=== PATIENT | male | born 1945 | race Caucasian/White ===

== ENCOUNTER 2023-07-02 12:28 | Emergency (ER) | payer OTHER, MEDICARE, BC ==
[2023-07-02 13:02] VITALS: BP 151/76; PULSE 68
[2023-07-02 13:23] LABS: BASOPHILS ABSOLUTE AUTO 0.04 K/uL (0.02-0.10); BASOPHILS PERCENT AUTO 0.4 % (0.0-0.5); EOSINOPHILS ABSOLUTE AUTO 0.12 K/uL (0.04-0.40); EOSINOPHILS PERCENT AUTO 1.3 % (1.0-5.0); HEMATOCRIT 44.8 % (40.0-54.0); HEMOGLOBIN 14.9 g/dL (13.0-18.0); LYMPHOCYTES ABSOLUTE AUTO 1.32 K/uL (1.50-4.00); LYMPHOCYTES PERCENT AUTO 13.8 % (20.0-40.0); MEAN CORPUSCULAR HGB CONC 33.3 g/dL (31.0-35.0); MEAN CORPUSCULAR VOLUME 87 fL (76-96); MEAN PLATELET VOLUME 9.1 fL (6.0-10.0); MONOCYTES ABSOLUTE AUTO 0.84 K/uL (0.20-0.80); MONOCYTES PERCENT AUTO 8.8 % (3.0-10.0); NEUTROPHILS ABSOLUTE AUTO 7.28 K/uL (2.00-7.50); NEUTROPHILS PERCENT AUTO 75.7 % (45.0-70.0); PLATELET COUNT,PLT 227 K/uL (150-400); RED BLOOD CELL COUNT 5.13 M/uL (4.50-6.50); RED CELL DISTRIBUTION WIDTH 15.6 % (11.0-16.0); WHITE BLOOD CELL COUNT,WBC 9.6 K/uL (4.0-11.0)
[2023-07-02 13:41] LABS: A/G RATIO 1.1 (0.8-2.0); ALBUMIN 3.4 g/dL (3.4-5.0); ANION GAP 12.7 mmol/L (5.0-15.0); BILIRUBIN TOTAL 0.7 mg/dL (0.0-1.0); BUN/CREATININE RATIO 23.3 (6-25); CALCIUM 8.4 mg/dL (8.5-10.1); CARBON DIOXIDE,CO2 27.2 mmol/L (21.0-32.0); CREATININE 0.86 mg/dL (0.70-1.30); EST CRCL DRUG DOSING (CG) 64.56 mL/min; POTASSIUM,K 3.9 mmol/L (3.5-5.1); PROTEIN TOTAL,TP 6.5 g/dL (6.4-8.2)
[2023-07-02 13:56] LABS: APPEARANCE,URINE SLIGHTLY CLOUDY (CLEAR); BILIRUBIN,URINE NEGATIVE (NEGATIVE); COLOR,URINE YELLOW; GLUCOSE,URINE >=1000 mg/dL (NEGATIVE); KETONES,URINE NEGATIVE (NEGATIVE); LEUKOCYTE ESTERASE,URINE NEGATIVE (NEGATIVE); NITRITE,URINE NEGATIVE (NEGATIVE); OCCULT BLOOD,URINE NEGATIVE (NEGATIVE); PH,URINE 5.5 (5.0-8.0); PROTEIN,URINE NEGATIVE (NEGATIVE); UROBILINOGEN,URINE 0.2 E.U./dL (0.2-1.0)
[2023-07-02 14:03] LABS: RBC,URINE 0-5 /HPF; WBC,URINE 0-5 /HPF
== END 2023-07-02 14:26 | disposition home or self-care (01) ==
LOC: LB.ED 12:28
DX: S00.11XA Contusion of right eyelid and periocular area, initial encounter (principal); E11.49 Type 2 diabetes mellitus with other diabetic neurological complication; R29.6 Repeated falls; E78.00 Pure hypercholesterolemia, unspecified; I10 Essential (primary) hypertension; Z79.899 Other long term (current) drug therapy; Z86.19 Personal history of other infectious and parasitic diseases
CPT/HCPCS: 36415; 70450; 80053; 81001; 85025; 93005; 93010; 99284

== ENCOUNTER 2023-11-02 12:23 | Inpatient (IN) | payer MEDICARE, BC ==
[2023-11-02 12:52] LABS: BASOPHILS ABSOLUTE AUTO 0.04 K/uL (0.02-0.10); BASOPHILS PERCENT AUTO 0.2 % (0.0-0.5); HEMATOCRIT 42.7 % (40.0-54.0); HEMOGLOBIN 14.7 g/dL (13.0-18.0); LYMPHOCYTES ABSOLUTE AUTO 0.39 K/uL (1.50-4.00); LYMPHOCYTES PERCENT AUTO 2.3 % (20.0-40.0); MEAN CORPUSCULAR HEMOGLOBIN 32.2 pg (27.0-32.0); MEAN CORPUSCULAR HGB CONC 34.4 g/dL (31.0-35.0); MEAN CORPUSCULAR VOLUME 94 fL (76-96); MEAN PLATELET VOLUME 9.1 fL (6.0-10.0); MONOCYTES ABSOLUTE AUTO 0.79 K/uL (0.20-0.80); MONOCYTES PERCENT AUTO 4.6 % (3.0-10.0); NEUTROPHILS ABSOLUTE AUTO 16.03 K/uL (2.00-7.50); NEUTROPHILS PERCENT AUTO 92.9 % (45.0-70.0); PLATELET COUNT,PLT 157 K/uL (150-400); RED BLOOD CELL COUNT 4.56 M/uL (4.50-6.50); RED CELL DISTRIBUTION WIDTH 14.9 % (11.0-16.0); WHITE BLOOD CELL COUNT,WBC 17.3 K/uL (4.0-11.0)
[2023-11-02 13:12] LABS: ALBUMIN 3.1 g/dL (3.4-5.0); ANION GAP 12.4 mmol/L (5.0-15.0); BILIRUBIN TOTAL 1.5 mg/dL (0.0-1.0); BUN/CREATININE RATIO 14.9 (6-25); CALCIUM 8.4 mg/dL (8.5-10.1); CARBON DIOXIDE,CO2 29.2 mmol/L (21.0-32.0); CREATININE 1.01 mg/dL (0.70-1.30); EST CRCL DRUG DOSING (CG) 58.17 mL/min; MAGNESIUM 1.7 mg/dL (1.8-2.4); PHOSPHORUS 3.1 mg/dL (2.5-4.9); POTASSIUM,K 3.6 mmol/L (3.5-5.1); PROTEIN TOTAL,TP 6.2 g/dL (6.4-8.2)
[2023-11-02] MEDS: Acetaminophen 500 MG Tab PO ONE (13:13)
[2023-11-02 13:18] LABS: LACTIC ACID 1.5 mmol/L (0.4-2.0)
[2023-11-02 13:29] LABS: APPEARANCE,URINE SLIGHTLY CLOUDY (CLEAR); BILIRUBIN,URINE SMALL (NEGATIVE); COLOR,URINE ORANGE; GLUCOSE,URINE >=1000 mg/dL (NEGATIVE); KETONES,URINE NEGATIVE (NEGATIVE); LEUKOCYTE ESTERASE,URINE NEGATIVE (NEGATIVE); NITRITE,URINE NEGATIVE (NEGATIVE); OCCULT BLOOD,URINE NEGATIVE (NEGATIVE); PH,URINE 6.5 (5.0-8.0); PROTEIN,URINE 100 mg/dL (NEGATIVE); UROBILINOGEN,URINE >=8.0 E.U./dL (0.2-1.0)
[2023-11-02 13:51] LABS: RBC,URINE NOT SEEN /HPF; WBC,URINE 0-5 /HPF
[2023-11-02] MEDS: Piperacillin/Tazobactam 3.375 GM in Sodium Chloride 0.9% 100 ML IV SCH (14:07)
[2023-11-02 14:54] LABS: INFLUENZA A NAA NEGATIVE (NEGATIVE); INFLUENZA B NAA NEGATIVE (NEGATIVE); RESPIRATORY SYNCYTIAL VIR NAA NEGATIVE (NEGATIVE)
[2023-11-02 14:59] LABS: CORONAVIRUS COVID-19 NAA NEGATIVE (NEGATIVE)
[2023-11-02] MEDS ORDERED: Ondansetron 4 MG/2 ML SDV IV PRN (15:08)
[2023-11-02] MEDS ORDERED: Polyethylene Glycol 3350 Powder 17 GM Packet PO PRN (15:08)
[2023-11-02] MEDS ORDERED: Docusate Sodium 100 MG Cap PO PRN (15:08)
[2023-11-02] MEDS: Vancomycin 1 GM SDV ONE (16:51)
[2023-11-02] MEDS: Magnesium Sulfate/Water 2 GM in Premix Bag 1 BAG IV ONE (17:37)
[2023-11-02] MEDS: Magnesium Sulfate/Water 50 ML ONE (18:13)
[2023-11-02] MEDS: Acetaminophen 500 MG Tab PO PRN (20:11)
[2023-11-02] MEDS: Melatonin 3 MG Tab PO PRN (20:11)
[2023-11-02] MEDS ORDERED: Glucagon,Human Recombinant 1 MG Vial IM PRN (20:27)
[2023-11-02] MEDS ORDERED: 50% Dextrose in Water 50 ML Syringe IVPUSH PRN (20:27)
[2023-11-03] MEDS: Amiodarone 200 MG Tab PO SCH (07:33)
[2023-11-03] MEDS: Hydrochlorothiazide 25 MG Tab PO SCH (07:34)
[2023-11-03] MEDS: Enoxaparin 40 MG/0.4 ML Syringe SUBCUT SCH (07:36)
[2023-11-03] MEDS: Ferrous Sulfate 325 MG Tab PO SCH (07:36)
[2023-11-03] MEDS: Pantoprazole 40 MG Tab.CR PO SCH (07:36)
[2023-11-03] MEDS: Insulin Aspart 100 Units/ML 3 ML Pen SUBCUT SCH (07:46)
[2023-11-03 08:45] LABS: BASOPHILS ABSOLUTE AUTO 0.04 K/uL (0.02-0.10); BASOPHILS PERCENT AUTO 0.5 % (0.0-0.5); EOSINOPHILS ABSOLUTE AUTO 0.05 K/uL (0.04-0.40); EOSINOPHILS PERCENT AUTO 0.6 % (1.0-5.0); HEMATOCRIT 39.9 % (40.0-54.0); HEMOGLOBIN 13.5 g/dL (13.0-18.0); LYMPHOCYTES ABSOLUTE AUTO 0.76 K/uL (1.50-4.00); LYMPHOCYTES PERCENT AUTO 8.8 % (20.0-40.0); MEAN CORPUSCULAR HEMOGLOBIN 32.3 pg (27.0-32.0); MEAN CORPUSCULAR HGB CONC 33.8 g/dL (31.0-35.0); MEAN CORPUSCULAR VOLUME 96 fL (76-96); MEAN PLATELET VOLUME 9.2 fL (6.0-10.0); MONOCYTES ABSOLUTE AUTO 0.59 K/uL (0.20-0.80); MONOCYTES PERCENT AUTO 6.8 % (3.0-10.0); NEUTROPHILS ABSOLUTE AUTO 7.23 K/uL (2.00-7.50); NEUTROPHILS PERCENT AUTO 83.3 % (45.0-70.0); PLATELET COUNT,PLT 153 K/uL (150-400); RED BLOOD CELL COUNT 4.18 M/uL (4.50-6.50); RED CELL DISTRIBUTION WIDTH 15.3 % (11.0-16.0); WHITE BLOOD CELL COUNT,WBC 8.7 K/uL (4.0-11.0)
[2023-11-03 09:07] LABS: A/G RATIO 0.8 (0.8-2.0); ALBUMIN 2.6 g/dL (3.4-5.0); BILIRUBIN TOTAL 1.3 mg/dL (0.0-1.0); BUN/CREATININE RATIO 19.8 (6-25); CALCIUM 8.1 mg/dL (8.5-10.1); CARBON DIOXIDE,CO2 26.5 mmol/L (21.0-32.0); CREATININE 0.91 mg/dL (0.70-1.30); EST CRCL DRUG DOSING (CG) 64.57 mL/min; POTASSIUM,K 3.5 mmol/L (3.5-5.1); PROTEIN TOTAL,TP 5.7 g/dL (6.4-8.2)
[2023-11-03] MEDS: Vancomycin 1 GM SDV ONE ×2 (20:59)
[2023-11-04 08:16] LABS: HEMATOCRIT 41.6 % (40.0-54.0); HEMOGLOBIN 14.2 g/dL (13.0-18.0); MEAN CORPUSCULAR HEMOGLOBIN 32.1 pg (27.0-32.0); MEAN CORPUSCULAR HGB CONC 34.1 g/dL (31.0-35.0); MEAN PLATELET VOLUME 9.1 fL (6.0-10.0); RED BLOOD CELL COUNT 4.42 M/uL (4.50-6.50); RED CELL DISTRIBUTION WIDTH 15.1 % (11.0-16.0); WHITE BLOOD CELL COUNT,WBC 5.6 K/uL (4.0-11.0)
[2023-11-04 08:31] LABS: ANION GAP 15.2 mmol/L (5.0-15.0); BUN/CREATININE RATIO 13.8 (6-25); CALCIUM 8.4 mg/dL (8.5-10.1); CARBON DIOXIDE,CO2 27.1 mmol/L (21.0-32.0); CREATININE 0.94 mg/dL (0.70-1.30); EST CRCL DRUG DOSING (CG) 62.51 mL/min; POTASSIUM,K 3.3 mmol/L (3.5-5.1)
[2023-11-04] MEDS: Sulfamethoxazole/Trimethoprim 800-160 MG Tab PO SCH (15:56)
[2023-11-05 07:34] VITALS: BP 143/92; PULSE 59
[2023-11-05 07:43] LABS: HEMATOCRIT 44.5 % (40.0-54.0); HEMOGLOBIN 15.2 g/dL (13.0-18.0); MEAN CORPUSCULAR HGB CONC 34.2 g/dL (31.0-35.0); MEAN PLATELET VOLUME 8.9 fL (6.0-10.0); RED BLOOD CELL COUNT 4.75 M/uL (4.50-6.50); RED CELL DISTRIBUTION WIDTH 14.8 % (11.0-16.0); WHITE BLOOD CELL COUNT,WBC 5.3 K/uL (4.0-11.0)
[2023-11-05 08:34] LABS: ANION GAP 13.2 mmol/L (5.0-15.0); BUN/CREATININE RATIO 13.7 (6-25); CARBON DIOXIDE,CO2 30.6 mmol/L (21.0-32.0); CREATININE 0.95 mg/dL (0.70-1.30); EST CRCL DRUG DOSING (CG) 61.85 mL/min; POTASSIUM,K 3.8 mmol/L (3.5-5.1)
== END 2023-11-05 10:30 | disposition swing bed (61) | DRG 603 ==
LOC: LB.ED 12:23 → OBSVTOIN 14:30 → LB.MS 14:30
PROVIDERS: ADMIT Nurse Practitioner Family; ATTEND Nurse Practitioner Family
DX: L03.116 Cellulitis of left lower limb (principal); E11.49 Type 2 diabetes mellitus with other diabetic neurological complication; E78.5 Hyperlipidemia, unspecified; I10 Essential (primary) hypertension; E78.00 Pure hypercholesterolemia, unspecified; K21.9 Gastro-esophageal reflux disease without esophagitis; R29.6 Repeated falls; Z79.84 Long term (current) use of oral hypoglycemic drugs; Z79.899 Other long term (current) drug therapy; Z86.73 Personal history of transient ischemic attack (TIA), and cerebral infarction without residual deficits
CPT/HCPCS: 0241U; 36415; 80048; 80053; 80202; 81001; 82947; 83605; 83735; 84100; 85025; 85027; 87040; 97162-GP; 97165-GO; 97530-GO; 97530-GP; 99222; 99231; 99232; 99238; 99285; A9270-GY; J1650; J2543; J3370; J3475; J3490; J7050

== ENCOUNTER 2023-11-05 09:23 | Inpatient (IN) | payer MEDICARE, BC ==
[~2023-11-05 09:23] MED LIST: Acetaminophen 500 MG Tab ONE
[2023-11-05] MEDS: Tuberculin, PPD 5 Units/0.1 ML 1 ML MDV IDERM ONE (11:42)
[2023-11-05] MEDS ORDERED: Acetaminophen 325 MG Tab PO PRN (12:11)
[2023-11-05] MEDS ORDERED: Docusate Sodium 100 MG Cap PO PRN (13:09)
[2023-11-05] MEDS ORDERED: Polyethylene Glycol 3350 Powder 17 GM Packet PO PRN (13:10)
[2023-11-05] MEDS ORDERED: Glucagon,Human Recombinant 1 MG Vial IM PRN (13:16)
[2023-11-05] MEDS ORDERED: 50% Dextrose in Water 50 ML Syringe IVPUSH PRN (13:16)
[2023-11-05] MEDS: Insulin Aspart 100 Units/ML 3 ML Pen SUBCUT SCH (14:50)
[2023-11-05] MEDS: Sulfamethoxazole/Trimethoprim 800-160 MG Tab PO SCH (19:57)
[2023-11-05] MEDS ORDERED: Zolpidem 5 MG Tab PO SCH (20:00)
[2023-11-06] MEDS: Melatonin 3 MG Tab PO PRN (01:13)
[2023-11-06] MEDS: Acetaminophen 500 MG Tab PO PRN (01:13)
[2023-11-06] MEDS: Amiodarone 200 MG Tab PO SCH (07:44)
[2023-11-06] MEDS: Ferrous Sulfate 325 MG Tab PO SCH (07:44)
[2023-11-06] MEDS: Enoxaparin 40 MG/0.4 ML Syringe SUBCUT SCH (07:45)
[2023-11-06] MEDS: Hydrochlorothiazide 25 MG Tab PO SCH (07:45)
[2023-11-06] MEDS: Pantoprazole 40 MG Tab.CR PO SCH (07:45)
[2023-11-06] MEDS ORDERED: Non-Formulary Medication 1 Each (Dapagliflozin Propanediol [Farxiga] 10 MG Tablet) PO SCH (08:00)
[2023-11-06] MEDS ORDERED: OMEPRAZOLE PO SCH (08:00)
[2023-11-07] MEDS: metFORMIN 500 MG Tab PO SCH (17:10)
[2023-11-09] MEDS: metFORMIN 500 MG Tab ONE (21:27)
[2023-11-11 07:59] VITALS: BP 154/78; PULSE 64
== END 2023-11-11 11:15 | disposition home or self-care (01) | DRG 603 ==
LOC: LB.MS 09:23
PROVIDERS: ADMIT Physician Assistant; ATTEND Physician Assistant
DX: L03.116 Cellulitis of left lower limb (principal); R53.81 Other malaise; Z79.899 Other long term (current) drug therapy
CPT/HCPCS: 82947; 86580; 97110-GP; 97112-GP; 97530-GO; 97530-GP; 97535-GO; 99305; 99315; A9270-GY; J1650

== ENCOUNTER 2024-01-02 14:07 | Inpatient (IN) | payer MEDICARE, BC ==
[2024-01-02 15:09] LABS: BASOPHILS ABSOLUTE AUTO 0.03 K/uL (0.02-0.10); BASOPHILS PERCENT AUTO 0.2 % (0.0-0.5); EOSINOPHILS ABSOLUTE AUTO 0.04 K/uL (0.04-0.40); EOSINOPHILS PERCENT AUTO 0.3 % (1.0-5.0); HEMATOCRIT 45.3 % (40.0-54.0); HEMOGLOBIN 15.8 g/dL (13.0-18.0); LYMPHOCYTES ABSOLUTE AUTO 0.81 K/uL (1.50-4.00); LYMPHOCYTES PERCENT AUTO 6.6 % (20.0-40.0); MEAN CORPUSCULAR HEMOGLOBIN 32.6 pg (27.0-32.0); MEAN CORPUSCULAR HGB CONC 34.9 g/dL (31.0-35.0); MEAN CORPUSCULAR VOLUME 93 fL (76-96); MEAN PLATELET VOLUME 8.8 fL (6.0-10.0); MONOCYTES ABSOLUTE AUTO 0.96 K/uL (0.20-0.80); MONOCYTES PERCENT AUTO 7.8 % (3.0-10.0); NEUTROPHILS ABSOLUTE AUTO 10.46 K/uL (2.00-7.50); NEUTROPHILS PERCENT AUTO 85.1 % (45.0-70.0); PLATELET COUNT,PLT 153 K/uL (150-400); RED BLOOD CELL COUNT 4.85 M/uL (4.50-6.50); RED CELL DISTRIBUTION WIDTH 14.3 % (11.0-16.0); WHITE BLOOD CELL COUNT,WBC 12.3 K/uL (4.0-11.0)
[2024-01-02 15:47] LABS: BUN/CREATININE RATIO 25.6 (6-25); CARBON DIOXIDE,CO2 28.9 mmol/L (21.0-32.0); CREATININE 0.9 mg/dL (0.70-1.30); EST CRCL DRUG DOSING (CG) 63.01 mL/min; POTASSIUM,K 3.9 mmol/L (3.5-5.1)
[2024-01-02] MEDS: cefTRIAXone 1 GM in Sodium Chloride 0.9% 50 ML IV ONE (17:20)
[2024-01-02] MEDS: cefTRIAXone 1 GM Vial ONE (17:24)
[2024-01-02] MEDS: Furosemide 20 MG Tab PO SCH (19:56)
[2024-01-02] MEDS: Zolpidem 5 MG Tab PO PRN (19:56)
[2024-01-02] MEDS: prednisoLONE Acetate 1% Ophth Susp 5 ML Bottle EYERT SCH (19:57)
[2024-01-02] MEDS: FLU (Fluad Triv) TS24-25 (65UP)/MF59C/PF 45 MCG/0.5 ML Syringe IM ONE (20:50)
[2024-01-02] MEDS ORDERED: cefTRIAXone 1 GM in Sodium Chloride 0.9% 50 ML IV SCH (23:00)
[2024-01-03] MEDS: cefTRIAXone 1 GM in Sodium Chloride 0.9% 50 ML IV SCH (05:00)
[2024-01-03] MEDS ORDERED: OMEPRAZOLE PO SCH (08:00)
[2024-01-03] MEDS: Pantoprazole 40 MG Tab.CR PO SCH (08:03)
[2024-01-03] MEDS: Amiodarone 200 MG Tab PO SCH (08:03)
[2024-01-03 09:37] LABS: APPEARANCE,URINE SLIGHTLY CLOUDY (CLEAR); BILIRUBIN,URINE NEGATIVE (NEGATIVE); COLOR,URINE ORANGE; GLUCOSE,URINE >=1000 mg/dL (NEGATIVE); KETONES,URINE 15 mg/dL (NEGATIVE); OCCULT BLOOD,URINE TRACE-INTACT (NEGATIVE); PROTEIN,URINE 100 mg/dL (NEGATIVE); UROBILINOGEN,URINE 4 E.U./dL (0.2-1.0)
[2024-01-03 09:38] LABS: LEUKOCYTE ESTERASE,URINE NEGATIVE (NEGATIVE); NITRITE,URINE NEGATIVE (NEGATIVE); RBC,URINE 0-5 /HPF; WBC,URINE 0-5 /HPF
[2024-01-03 09:39] LABS: SQUAMOUS EPITHELIAL CELLS,UR OCCASIONAL /HPF
[2024-01-03] MEDS: Non-Formulary Medication 1 Each (Dapagliflozin Propanediol [Farxiga] 10 MG Tablet) PO SCH (13:40)
[2024-01-03] MEDS: Acetaminophen/Codeine 300-30 MG Tab PO PRN (13:40)
[2024-01-03 14:47] LABS: HEMATOCRIT 39.5 % (40.0-54.0); HEMOGLOBIN 13.8 g/dL (13.0-18.0); MEAN CORPUSCULAR HEMOGLOBIN 32.8 pg (27.0-32.0); MEAN CORPUSCULAR HGB CONC 34.9 g/dL (31.0-35.0); RED BLOOD CELL COUNT 4.21 M/uL (4.50-6.50); RED CELL DISTRIBUTION WIDTH 14.1 % (11.0-16.0); WHITE BLOOD CELL COUNT,WBC 10.1 K/uL (4.0-11.0)
[2024-01-03 14:59] LABS: ANION GAP 10.1 mmol/L (5.0-15.0); BUN/CREATININE RATIO 24.4 (6-25); CALCIUM 8.7 mg/dL (8.5-10.1); CARBON DIOXIDE,CO2 25.7 mmol/L (21.0-32.0); CREATININE 0.82 mg/dL (0.70-1.30); EST CRCL DRUG DOSING (CG) 69.16 mL/min; POTASSIUM,K 3.8 mmol/L (3.5-5.1)
[2024-01-03] MEDS: DAPAGLIFLOZIN 10 MG PO ONE (18:15)
[2024-01-03] MEDS: Morphine 4 MG/ML VIAL IVPUSH PRN (19:29)
[2024-01-04] MEDS: Hydrochlorothiazide 25 MG Tab PO SCH (08:06)
[2024-01-04] MEDS: DAPAGLIFLOZIN 10 MG PO SCH (08:08)
[2024-01-04] MEDS: Heparin Sodium 5,000 Units/ML Vial SUBCUT SCH (09:14)
[2024-01-04 22:22] LABS: HEMATOCRIT 42.4 % (40.0-54.0); HEMOGLOBIN 14.5 g/dL (13.0-18.0); MEAN CORPUSCULAR HEMOGLOBIN 32.2 pg (27.0-32.0); MEAN CORPUSCULAR HGB CONC 34.2 g/dL (31.0-35.0); MEAN PLATELET VOLUME 8.7 fL (6.0-10.0); RED BLOOD CELL COUNT 4.51 M/uL (4.50-6.50); RED CELL DISTRIBUTION WIDTH 14.2 % (11.0-16.0); WHITE BLOOD CELL COUNT,WBC 8.9 K/uL (4.0-11.0)
[2024-01-04 22:37] LABS: ANION GAP 12.1 mmol/L (5.0-15.0); BUN/CREATININE RATIO 28.6 (6-25); CARBON DIOXIDE,CO2 28.3 mmol/L (21.0-32.0); CREATININE 0.98 mg/dL (0.70-1.30); EST CRCL DRUG DOSING (CG) 57.87 mL/min; POTASSIUM,K 3.4 mmol/L (3.5-5.1)
[2024-01-04 23:01] LABS: C-REACTIVE PROTEIN 267.9 mg/L (<5.0)
[2024-01-04] MEDS: Vancomycin 1.75 GM in Sodium Chloride 0.9% 500 ML IV SCH (23:43)
[2024-01-05] MEDS: Acetaminophen/HYDROcodone 325-10 MG Tab PO PRN (01:34)
[2024-01-05] MEDS ORDERED: cefTRIAXone 1 GM in Sodium Chloride 0.9% 50 ML IV SCH (08:00)
[2024-01-05] MEDS: Magnesium Hydroxide 400 MG/5 ML Susp 30 ML Cup PO PRN (09:44)
[2024-01-05] MEDS: Lisinopril 5 MG Tab PO SCH (13:48)
[2024-01-05] MEDS: Furosemide 20 MG/2 ML VIAL IVPUSH SCH (16:01)
[2024-01-05] MEDS: Acetaminophen 325 MG Tab PO PRN (23:21)
[2024-01-06] MEDS: Vancomycin 1.75 GM in Sodium Chloride 0.9% 500 ML IV ONE (00:55)
[2024-01-06 10:06] LABS: ANION GAP 12.8 mmol/L (5.0-15.0); BUN/CREATININE RATIO 36.3 (6-25); CALCIUM 9.2 mg/dL (8.5-10.1); CARBON DIOXIDE,CO2 28.7 mmol/L (21.0-32.0); CREATININE 0.91 mg/dL (0.70-1.30); EST CRCL DRUG DOSING (CG) 62.32 mL/min; POTASSIUM,K 3.5 mmol/L (3.5-5.1)
[2024-01-07] MEDS: Heparin Sodium 5,000 Units/ML Vial SUBCUT SCH (07:22)
[2024-01-08 08:54] LABS: BASOPHILS ABSOLUTE AUTO 0.09 K/uL (0.02-0.10); BASOPHILS PERCENT AUTO 0.9 % (0.0-0.5); EOSINOPHILS ABSOLUTE AUTO 0.05 K/uL (0.04-0.40); EOSINOPHILS PERCENT AUTO 0.5 % (1.0-5.0); LYMPHOCYTES ABSOLUTE AUTO 1.22 K/uL (1.50-4.00); LYMPHOCYTES PERCENT AUTO 12.6 % (20.0-40.0); MEAN CORPUSCULAR HEMOGLOBIN 31.7 pg (27.0-32.0); MEAN CORPUSCULAR HGB CONC 34.1 g/dL (31.0-35.0); MEAN CORPUSCULAR VOLUME 93 fL (76-96); MEAN PLATELET VOLUME 8.8 fL (6.0-10.0); MONOCYTES ABSOLUTE AUTO 0.99 K/uL (0.20-0.80); MONOCYTES PERCENT AUTO 10.2 % (3.0-10.0); NEUTROPHILS ABSOLUTE AUTO 7.33 K/uL (2.00-7.50); NEUTROPHILS PERCENT AUTO 75.8 % (45.0-70.0); PLATELET COUNT,PLT 236 K/uL (150-400); RED BLOOD CELL COUNT 4.73 M/uL (4.50-6.50); RED CELL DISTRIBUTION WIDTH 14.4 % (11.0-16.0); WHITE BLOOD CELL COUNT,WBC 9.7 K/uL (4.0-11.0)
[2024-01-08 09:22] LABS: ANION GAP 12.3 mmol/L (5.0-15.0); BUN/CREATININE RATIO 42.7 (6-25); C-REACTIVE PROTEIN 50.9 mg/L (<5.0); CALCIUM 9.2 mg/dL (8.5-10.1); CARBON DIOXIDE,CO2 29.7 mmol/L (21.0-32.0); CREATININE 0.89 mg/dL (0.70-1.30); EST CRCL DRUG DOSING (CG) 63.72 mL/min
[2024-01-08] MEDS: Sennosides 8.6 MG Tab PO SCH (09:53)
[2024-01-08] MEDS ORDERED: Furosemide 20 MG Tab PO SCH (16:00)
[2024-01-08] MEDS: Furosemide 20 MG Tab PO SCH (16:08)
[2024-01-10 09:40] LABS: BASOPHILS ABSOLUTE AUTO 0.06 K/uL (0.02-0.10); BASOPHILS PERCENT AUTO 0.6 % (0.0-0.5); EOSINOPHILS ABSOLUTE AUTO 0.07 K/uL (0.04-0.40); EOSINOPHILS PERCENT AUTO 0.7 % (1.0-5.0); HEMATOCRIT 40.1 % (40.0-54.0); HEMOGLOBIN 13.7 g/dL (13.0-18.0); LYMPHOCYTES ABSOLUTE AUTO 1.11 K/uL (1.50-4.00); LYMPHOCYTES PERCENT AUTO 11.6 % (20.0-40.0); MEAN CORPUSCULAR HEMOGLOBIN 31.9 pg (27.0-32.0); MEAN CORPUSCULAR HGB CONC 34.2 g/dL (31.0-35.0); MEAN CORPUSCULAR VOLUME 93 fL (76-96); MEAN PLATELET VOLUME 8.9 fL (6.0-10.0); MONOCYTES ABSOLUTE AUTO 0.61 K/uL (0.20-0.80); MONOCYTES PERCENT AUTO 6.4 % (3.0-10.0); NEUTROPHILS ABSOLUTE AUTO 7.68 K/uL (2.00-7.50); NEUTROPHILS PERCENT AUTO 80.7 % (45.0-70.0); PLATELET COUNT,PLT 239 K/uL (150-400); RED CELL DISTRIBUTION WIDTH 14.4 % (11.0-16.0); WHITE BLOOD CELL COUNT,WBC 9.5 K/uL (4.0-11.0)
[2024-01-10 10:10] LABS: A/G RATIO 0.6 (0.8-2.0); ALBUMIN 2.3 g/dL (3.4-5.0); ANION GAP 11.2 mmol/L (5.0-15.0); BILIRUBIN TOTAL 0.7 mg/dL (0.0-1.0); BUN/CREATININE RATIO 39.6 (6-25); C-REACTIVE PROTEIN 33.8 mg/L (<5.0); CARBON DIOXIDE,CO2 31.6 mmol/L (21.0-32.0); CREATININE 0.91 mg/dL (0.70-1.30); EST CRCL DRUG DOSING (CG) 62.32 mL/min; POTASSIUM,K 3.8 mmol/L (3.5-5.1); PROTEIN TOTAL,TP 6.2 g/dL (6.4-8.2)
[2024-01-10] MEDS ORDERED: Glucagon,Human Recombinant 1 MG Vial IM PRN (12:46)
[2024-01-10] MEDS ORDERED: 50% Dextrose in Water 50 ML Syringe IVPUSH PRN (12:46)
[2024-01-10] MEDS: Furosemide 40 MG/4 ML VIAL IVPUSH ONE (13:51)
[2024-01-10] MEDS: Gabapentin 300 MG Cap PO SCH (14:35)
[2024-01-10] MEDS: Menthol/Zinc Oxide Ointment 113 GM Tube TOP ONE (14:35)
[2024-01-10] MEDS: metroNIDAZOLE/Normal Saline 500 MG in Premix Bag 1 BAG IV SCH (16:05)
[2024-01-10] MEDS: Lactobacillus Acidophilus/Lactobacillus Sporogenes (Probiotic) Tab PO SCH (16:05)
[2024-01-10] MEDS: Insulin Lispro 100 Unit/ML 3 ML KwikPen SUBCUT SCH (17:57)
[2024-01-10] MEDS: Lactulose Soln 10 GM/15 ML 15 ML UD Cup PO ONE (19:51)
[2024-01-10] MEDS: Cefepime 2 GM in Sodium Chloride 0.9% 50 ML IV SCH (19:51)
[2024-01-11 08:55] LABS: BASOPHILS ABSOLUTE AUTO 0.05 K/uL (0.02-0.10); BASOPHILS PERCENT AUTO 0.3 % (0.0-0.5); EOSINOPHILS ABSOLUTE AUTO 0.05 K/uL (0.04-0.40); EOSINOPHILS PERCENT AUTO 0.3 % (1.0-5.0); HEMATOCRIT 43.5 % (40.0-54.0); HEMOGLOBIN 14.7 g/dL (13.0-18.0); LYMPHOCYTES PERCENT AUTO 11.8 % (20.0-40.0); MEAN CORPUSCULAR HEMOGLOBIN 31.7 pg (27.0-32.0); MEAN CORPUSCULAR HGB CONC 33.8 g/dL (31.0-35.0); MEAN CORPUSCULAR VOLUME 94 fL (76-96); MEAN PLATELET VOLUME 8.6 fL (6.0-10.0); MONOCYTES ABSOLUTE AUTO 0.81 K/uL (0.20-0.80); NEUTROPHILS ABSOLUTE AUTO 13.33 K/uL (2.00-7.50); NEUTROPHILS PERCENT AUTO 82.6 % (45.0-70.0); PLATELET COUNT,PLT 285 K/uL (150-400); RED BLOOD CELL COUNT 4.64 M/uL (4.50-6.50); RED CELL DISTRIBUTION WIDTH 14.5 % (11.0-16.0); WHITE BLOOD CELL COUNT,WBC 16.1 K/uL (4.0-11.0)
[2024-01-11 09:13] LABS: A/G RATIO 0.7 (0.8-2.0); ALBUMIN 2.6 g/dL (3.4-5.0); ANION GAP 12.2 mmol/L (5.0-15.0); BILIRUBIN TOTAL 0.9 mg/dL (0.0-1.0); C-REACTIVE PROTEIN 43.5 mg/L (<5.0); CARBON DIOXIDE,CO2 31.9 mmol/L (21.0-32.0); EST CRCL DRUG DOSING (CG) 56.71 mL/min; POTASSIUM,K 4.1 mmol/L (3.5-5.1); PROTEIN TOTAL,TP 6.6 g/dL (6.4-8.2)
[2024-01-11 14:11] VITALS: BP 121/60; PULSE 76
== END 2024-01-11 16:39 | DRG 603 ==
LOC: LB.ED 14:07 → LB.MS 18:43
PROVIDERS: ADMIT Surgery; ATTEND Surgery
DX: L03.115 Cellulitis of right lower limb (principal); R60.0 Localized edema; E11.9 Type 2 diabetes mellitus without complications; E78.00 Pure hypercholesterolemia, unspecified; I10 Essential (primary) hypertension; D72.829 Elevated white blood cell count, unspecified; K21.9 Gastro-esophageal reflux disease without esophagitis; E66.9 Obesity, unspecified; R29.6 Repeated falls; I48.91 Unspecified atrial fibrillation; K59.09 Other constipation; H54.7 Unspecified visual loss; Z68.33 Body mass index [BMI] 33.0-33.9, adult; Z86.73 Personal history of transient ischemic attack (TIA), and cerebral infarction without residual deficits; Z87.891 Personal history of nicotine dependence; Z79.899 Other long term (current) drug therapy
CPT/HCPCS: 36415; 51702; 73560-RT; 73590-RT; 73600-RT; 73700-RT; 80048; 80053; 80202; 81001; 82947; 83880; 85025; 85027; 86140; 90653; 93971-RT; 96374; 97161-GP; 97165-GO; 97530-GO; 97530-GP; 99222; 99231; 99232; 99238; 99285-25; A9270-GY; G0008; J0692; J0696; J1644; J1815; J1836; J1940; J2270; J3370; J3490; J7040; J7050; U0002

== ENCOUNTER 2024-01-21 10:18 | Inpatient (IN) | payer MEDICARE, BC ==
[2024-01-21] MEDS: Acetaminophen 500 MG Tab PO SCH (14:05)
[2024-01-21] MEDS: Cephalexin 500 MG Cap PO SCH (18:42)
[2024-01-21] MEDS ORDERED: Glucagon,Human Recombinant 1 MG Vial IM PRN (19:12)
[2024-01-21] MEDS ORDERED: 50% Dextrose in Water 50 ML Syringe IVPUSH PRN (19:12)
[2024-01-21] MEDS ORDERED: Non-Formulary Medication 1 Each (Prednisolone Acetate/Pf [Prednisolone Acet 1% Eye Drop] 5 EYERT SCH (20:00)
[2024-01-21] MEDS ORDERED: Tuberculin, PPD 5 Units/0.1 ML 1 ML MDV IDERM ONE (20:00)
[2024-01-21] MEDS: Gabapentin 100 MG Cap PO SCH (20:37)
[2024-01-21] MEDS: Apixaban 5 MG Tab PO SCH (20:42)
[2024-01-21] MEDS: Insulin NPH/Insulin Regular,Human 70-30 100 Units/ML 10 ML Vial SUBCUT SCH (20:47)
[2024-01-21 20:48] LABS: BASOPHILS ABSOLUTE AUTO 0.05 K/uL (0.02-0.10); BASOPHILS PERCENT AUTO 0.7 % (0.0-0.5); EOSINOPHILS ABSOLUTE AUTO 0.05 K/uL (0.04-0.40); EOSINOPHILS PERCENT AUTO 0.7 % (1.0-5.0); HEMATOCRIT 37.4 % (40.0-54.0); HEMOGLOBIN 12.5 g/dL (13.0-18.0); LYMPHOCYTES ABSOLUTE AUTO 0.99 K/uL (1.50-4.00); MEAN CORPUSCULAR HEMOGLOBIN 31.9 pg (27.0-32.0); MEAN CORPUSCULAR HGB CONC 33.4 g/dL (31.0-35.0); MEAN CORPUSCULAR VOLUME 95 fL (76-96); MEAN PLATELET VOLUME 8.3 fL (6.0-10.0); MONOCYTES ABSOLUTE AUTO 0.61 K/uL (0.20-0.80); MONOCYTES PERCENT AUTO 8.7 % (3.0-10.0); NEUTROPHILS ABSOLUTE AUTO 5.35 K/uL (2.00-7.50); NEUTROPHILS PERCENT AUTO 75.9 % (45.0-70.0); PLATELET COUNT,PLT 267 K/uL (150-400); RED BLOOD CELL COUNT 3.92 M/uL (4.50-6.50); RED CELL DISTRIBUTION WIDTH 15.4 % (11.0-16.0); WHITE BLOOD CELL COUNT,WBC 7.1 K/uL (4.0-11.0)
[2024-01-21] MEDS: prednisoLONE Acetate 1% Ophth Susp 5 ML Bottle EYERT SCH (21:01)
[2024-01-21] MEDS: Acetaminophen 500 MG Tab ONE (21:02)
[2024-01-21 21:12] LABS: A/G RATIO 0.9 (0.8-2.0); ALANINE AMINOTRANSFERASE,ALT 79 U/L (12-78); ALBUMIN 2.9 g/dL (3.4-5.0); ALKALINE PHOSPHATASE 104 U/L (46-116); ANION GAP 11.6 mmol/L (5.0-15.0); ASPARTATE AMNIOTRANSFERASE,AST 27 U/L (15-37); BILIRUBIN TOTAL 0.7 mg/dL (0.0-1.0); BLOOD UREA NITROGEN,BUN 28 mg/dL (8-26); BUN/CREATININE RATIO 34.1 (6-25); CALCIUM 8.9 mg/dL (8.5-10.1); CHLORIDE,CL 103 mmol/L (98-107); CREATININE 0.82 mg/dL (0.70-1.30); EST CRCL DRUG DOSING (CG) 66.67 mL/min; ESTIMATED GFR 91 mL/min (>60); GLUCOSE RANDOM 175 mg/dL (74-100); POTASSIUM,K 3.6 mmol/L (3.5-5.1); PRO B-TYPE NATRIUR PEPT,BNPPRO 144 pg/mL (0-450); SODIUM,NA 139 mmol/L (136-145)
[2024-01-21 21:24] LABS: C-REACTIVE PROTEIN < 5.0 mg/L (<5.0); ETHANOL BLOOD MEDICAL < 3.0 mg/dL (<3.0)
[2024-01-22] MEDS: oxyCODONE 5 MG Tab PO PRN (00:07)
[2024-01-22] MEDS ORDERED: OMEPRAZOLE PO SCH (08:00)
[2024-01-22] MEDS ORDERED: Hydrochlorothiazide 25 MG Tab PO SCH (08:00)
[2024-01-22] MEDS: Pantoprazole 40 MG Tab.CR PO SCH (08:42)
[2024-01-22] MEDS: Lisinopril 10 MG Tab PO SCH (08:42)
[2024-01-22] MEDS: Ferrous Sulfate 325 MG Tab PO SCH (08:42)
[2024-01-22] MEDS: Polyethylene Glycol 3350 Powder 17 GM Packet PO SCH (08:42)
[2024-01-22] MEDS: Diltiazem 180 MG Cap.CD PO SCH (08:43)
[2024-01-22] MEDS: Hydrochlorothiazide 12.5 MG Cap PO SCH (08:43)
[2024-01-22] MEDS: Non-Formulary Medication 1 Each (Dapagliflozin Propanediol [Farxiga] 10 MG Tablet) PO SCH (09:35)
[2024-01-22] MEDS: Nystatin Topical Powder 15 GM Bottle TOP PRN (09:44)
[2024-01-22] MEDS: NOVOLOG ASPART SUBCUT SCH (20:36)
[2024-01-23] MEDS: DAPAGLIFLOZIN PROPANEDIOL 10 MG PO SCH (19:21)
[2024-01-23] MEDS: Insulin Lispro 100 Unit/ML 3 ML KwikPen SUBCUT SCH (22:07)
[2024-01-24] MEDS: Apixaban 5 MG Tab ONE (07:06)
[2024-01-26] MEDS: Gabapentin 100 MG Cap PO SCH (16:20)
[2024-01-26] MEDS: Gabapentin 100 MG Cap ONE (20:05)
[2024-01-27] MEDS: Apixaban 5 MG Tab PO SCH (08:15)
[2024-01-29] MEDS ORDERED: Ketoconazole 2% Crm 30 GM Tube TOP PRN (10:41)
[2024-01-29] MEDS: Ketoconazole 2% Crm 30 GM Tube TOP SCH (10:49)
[2024-01-29] MEDS ORDERED: Ketoconazole 2% Crm 30 GM Tube TOP SCH (12:00)
[2024-01-30 10:10] LABS: APPEARANCE,URINE CLEAR (CLEAR); BILIRUBIN,URINE NEGATIVE (NEGATIVE); COLOR,URINE YELLOW; GLUCOSE,URINE 500 mg/dL (NEGATIVE); KETONES,URINE NEGATIVE (NEGATIVE); LEUKOCYTE ESTERASE,URINE NEGATIVE (NEGATIVE); NITRITE,URINE NEGATIVE (NEGATIVE); OCCULT BLOOD,URINE NEGATIVE (NEGATIVE); PROTEIN,URINE TRACE mg/dL (NEGATIVE)
[2024-01-30] MEDS: Tamsulosin 0.4 MG Cap.ER PO SCH (19:56)
[2024-01-30] MEDS ORDERED: Tuberculin, PPD 5 Units/0.1 ML 1 ML MDV IDERM ONE (20:00)
[2024-01-31] MEDS: Acetaminophen 500 MG Tab PO SCH (13:47)
[2024-01-31] MEDS: Tamsulosin 0.4 MG Cap.ER PO SCH (19:26)
[2024-02-02] MEDS: Tamsulosin 0.4 MG Cap.ER PO ONE (20:14)
[2024-02-04] MEDS: Gabapentin 300 MG Cap PO SCH (15:19)
[2024-02-13 07:40] VITALS: BP 122/73; PULSE 88
== END 2024-02-13 10:09 | disposition home or self-care (01) | DRG 948 ==
LOC: LB.MS 18:57 → UNDOADMIN 18:57
PROVIDERS: ADMIT Physician Assistant; ATTEND Physician Assistant
DX: R53.81 Other malaise (principal); L03.115 Cellulitis of right lower limb; I48.91 Unspecified atrial fibrillation; I10 Essential (primary) hypertension; G47.33 Obstructive sleep apnea (adult) (pediatric); E78.00 Pure hypercholesterolemia, unspecified; K21.9 Gastro-esophageal reflux disease without esophagitis; N13.9 Obstructive and reflux uropathy, unspecified; E11.49 Type 2 diabetes mellitus with other diabetic neurological complication; H54.7 Unspecified visual loss; B35.6 Tinea cruris; Z94.7 Corneal transplant status; Z86.73 Personal history of transient ischemic attack (TIA), and cerebral infarction without residual deficits; Z79.01 Long term (current) use of anticoagulants; Z86.718 Personal history of other venous thrombosis and embolism; Z79.899 Other long term (current) drug therapy
CPT/HCPCS: 36415; 51798; 80053; 80307; 81003; 82947; 83880; 84145; 85025; 86140; 97110-GO; 97110-GP; 97116-GP; 97161-GP; 97165-GO; 97530-GO; 97530-GP; 97535-GO; 99305; 99307; 99308; 99309; 99316; A9270-GY; J1815; J1815-GY; U0002